=== PATIENT | female | born 1995 | race Caucasian/White ===

== ENCOUNTER 2018-12-10 23:05 | Emergency (ER) | payer SELFPAY ==
[~2018-12-10] VITALS: Ht 172.7 cm; Wt 104.5 kg
[~2018-12-10 23:05] MED LIST: BIRTH CONTROL; CLARINEX 5MG5 MG PO; CLARITIN 1010 MG/TAB PO; FLONASE NASAL S16 GM NS; LAMICTAL 100MG100 MG PO; MULTIPLE VITAMI1 CAP PO; TENEX PO; TRILEPTAL 150M150 MG PO; VYVANSE60 MG PO; VYVANSE70 MG PO; ZOFRAN 4MG T4 MG/TAB PO
[2018-12-10 23:28] VITALS: BP 130/75; TEMP 99.1
[2018-12-11 03:55] VITALS: PULSE 95
== END 2018-12-11 03:55 | disposition home or self-care (01) ==
LOC: COL.ER 23:05
DX: S93.401A Sprain of unspecified ligament of right ankle, initial encounter (principal); X50.0XXA Overexertion from strenuous movement or load, initial encounter; F32.9 Major depressive disorder, single episode, unspecified; F41.9 Anxiety disorder, unspecified; F17.210 Nicotine dependence, cigarettes, uncomplicated; F12.90 Cannabis use, unspecified, uncomplicated
CPT/HCPCS: Q4045; Q9967

== ENCOUNTER 2019-02-06 10:45 | Emergency (ER) | payer SELFPAY ==
[~2019-02-06] VITALS: Ht 172.7 cm; Wt 121.2 kg
[2019-02-06 10:53] VITALS: TEMP 99.7
[2019-02-06 11:49] LABS: BASO # 0.1 (0.0-0.2); BASO % 0.8 % (0.0-2.0); EOS # 0.1 (0.0-0.7); GRAN # 4.3 (1.4-6.5); GRAN % 55.7 % (42.2-75.2); HEMATOCRIT 44.9 % (37.0-47.0); HEMOGLOBIN 14.6 g/dl (12.5-16.0); LYMPH # 2.7 (1.2-3.4); LYMPH % 34.6 % (20.0-51.0); MEAN CELL VOLUME 90 fl (80.0-100.0); MEAN CORPUSCULAR HEMOGLOBIN 29 pg (27.0-31.0); MEAN CORPUSCULAR HGB CONC 33 g/dl (33.0-37.0); MEAN PLATELET VOLUME 10.1 fl (7.4-10.4); MONO # 0.6 (0.1-0.6); MONO % 7.6 % (1.7-9.3); PLATELET COUNT 264 K/mm3 (130-400); RED BLOOD COUNT 4.97 M/mm3 (4.10-5.30); REDCELL DISTRIBUTION WIDTH-CV 14.4 % (11.5-14.5)
[2019-02-06 11:58] LABS: ALANINE AMINOTRANSFERASE 30 U/L (9-52); ALBUMIN 4.5 gm/dL (3.5-5.0); ALKALINE PHOSPHATASE 138 U/L (50-136); ANION GAP 11 mmol/L (7-16); AST,SGOT 38 U/L (15-37); BILIRUBIN,TOTAL 0.6 mg/dL (0.0-1.0); BLOOD UREA NITROGEN 16 mg/dL (7-17); CALCIUM 10.1 mg/dL (8.4-10.2); CARBON DIOXIDE 25 mmol/L (22-30); CHLORIDE 106 mmol/L (98-107); GLUCOSE 77 mg/dL (74-106); POTASSIUM 4.1 mmol/L (3.4-5.0); SODIUM 142 mmol/L (137-145); TOTAL PROTEIN 8.9 gm/dL (6.4-8.2)
[2019-02-06 12:04] LABS: ACETAMINOPHEN < 10 ug/mL (10-30)
[2019-02-06 12:05] LABS: ALCOHOL(ethanol),MEDICAL < 10 mg/dL; SALICYLATE < 1.0 mg/dL
[2019-02-06 12:07] LABS: COLLECTION METHOD CLEAN CATCH
[2019-02-06 12:18] LABS: MUCOUS Present /lpf; PH 7 (5-8); SQUAMOUS EPITHELIAL 0-2 /hpf; URINE APPEARANCE Clear; URINE BACTERIA None Seen /hpf; URINE BILIRUBIN Negative (NEGATIVE); URINE BLOOD Negative (NEGATIVE); URINE COLOR Yellow; URINE GLUCOSE Negative (NEGATIVE); URINE KETONE Negative (NEGATIVE); URINE LEUKOCYTE ESTERASE Negative (NEGATIVE); URINE NITRATE Negative (NEGATIVE); URINE PROTEIN(semi-quant) Negative (NEGATIVE); URINE UROBILINOGEN Negative (NEGATIVE)
[2019-02-06 12:25] LABS: TRICYCLIC ANTIDEPRESS URINE NEGATIVE
[2019-02-06 15:45] VITALS: BP 133/83; PULSE 80
== END 2019-02-06 15:00 | disposition home or self-care (01) ==
LOC: COL.ER 10:45
PROVIDERS: Nurse Practitioner
DX: R45.851 Suicidal ideations (principal); F32.9 Major depressive disorder, single episode, unspecified; F20.9 Schizophrenia, unspecified; F90.9 Attention-deficit hyperactivity disorder, unspecified type; F41.9 Anxiety disorder, unspecified; F17.210 Nicotine dependence, cigarettes, uncomplicated

== ENCOUNTER 2019-07-03 06:57 | Emergency (ER) | payer MEDICAID ==
[~2019-07-03] VITALS: Ht 172.7 cm; Wt 109.1 kg
[2019-07-03 07:01] VITALS: BP 126/79; TEMP 97.1
[2019-07-03 07:54] LABS: BASO % 0.3 % (0.0-2.0); EOS # 0.1 (0.0-0.7); EOS % 0.6 % (0-4.0); GRAN # 9.7 (1.4-6.5); GRAN % 76.4 % (42.2-75.2); LYMPH # 2.1 (1.2-3.4); LYMPH % 16.4 % (20.0-51.0); MEAN CELL VOLUME 89 fl (80.0-100.0); MEAN CORPUSCULAR HEMOGLOBIN 29 pg (27.0-31.0); MEAN CORPUSCULAR HGB CONC 33 g/dl (33.0-37.0); MEAN PLATELET VOLUME 9.8 fl (7.4-10.4); MONO # 0.8 (0.1-0.6); PLATELET COUNT 288 K/mm3 (130-400); RED BLOOD COUNT 4.84 M/mm3 (4.10-5.30); REDCELL DISTRIBUTION WIDTH-CV 14.6 % (11.5-14.5)
[2019-07-03 08:04] LABS: ALANINE AMINOTRANSFERASE 27 U/L (9-52); ALBUMIN 4.4 gm/dL (3.5-5.0); ALKALINE PHOSPHATASE 137 U/L (50-136); ANION GAP 9 mmol/L (7-16); AST,SGOT 32 U/L (15-37); BILIRUBIN,TOTAL 0.6 mg/dL (0.0-1.0); BLOOD UREA NITROGEN 15 mg/dL (7-17); CALCIUM 9.5 mg/dL (8.4-10.2); CARBON DIOXIDE 24 mmol/L (22-30); CHLORIDE 106 mmol/L (98-107); CREATININE, serum 0.66 (0.52-1.25); GLUCOSE 97 mg/dL (74-106); POTASSIUM 4.2 mmol/L (3.4-5.0); SODIUM 138 mmol/L (137-145); TOTAL PROTEIN 8.2 gm/dL (6.4-8.2)
[2019-07-03 08:09] LABS: ACETAMINOPHEN < 10 ug/mL (10-30); ALCOHOL(ethanol),MEDICAL < 10 mg/dL
[2019-07-03] MEDS ORDERED: ZOFRAN ODT8 MG PO (08:57)
[2019-07-03 09:00] LABS: COLLECTION METHOD CLEAN CATCH
[2019-07-03 09:10] LABS: MUCOUS Present /lpf; PH 6 (5-8); URINE APPEARANCE Hazy; URINE BACTERIA Rare /hpf; URINE BILIRUBIN Negative (NEGATIVE); URINE BLOOD Negative (NEGATIVE); URINE COLOR Yellow; URINE GLUCOSE Negative (NEGATIVE); URINE KETONE Negative (NEGATIVE); URINE LEUKOCYTE ESTERASE Trace (NEGATIVE); URINE NITRATE Negative (NEGATIVE); URINE PROTEIN(semi-quant) Negative (NEGATIVE); URINE RBC 0-2 /hpf; URINE UROBILINOGEN Negative (NEGATIVE)
[2019-07-03] MEDS ORDERED: CEPHALEXIN500 M1 PO (09:19)
[2019-07-03 09:22] LABS: TRICYCLIC ANTIDEPRESS URINE NEGATIVE
[2019-07-03 09:33] VITALS: PULSE 96
== END 2019-07-03 09:33 | disposition home or self-care (01) ==
LOC: COL.ER 06:57
PROVIDERS: Emergency Medicine
DX: S06.0X0A Concussion without loss of consciousness, initial encounter (principal); N39.0 Urinary tract infection, site not specified; F20.9 Schizophrenia, unspecified; F90.9 Attention-deficit hyperactivity disorder, unspecified type; R40.2412 Glasgow coma scale score 13-15, at arrival to emergency department; W22.8XXA Striking against or struck by other objects, initial encounter; Y92.009 Unspecified place in unspecified non-institutional (private) residence as the place of occurrence of the external cause

== ENCOUNTER 2019-08-03 18:40 | Emergency (ER) | payer MEDICAID ==
[~2019-08-03] VITALS: Ht 172.7 cm; Wt 118.2 kg
[~2019-08-03 18:40] MED LIST changes: +CEPHALEXIN500 M1 PO; +ZOFRAN ODT8 MG PO
[2019-08-03 20:49] VITALS: BP 118/68; PULSE 72; TEMP 98.9
== END 2019-08-03 20:52 | disposition home or self-care (01) ==
LOC: COL.ER 18:40
DX: S09.90XA Unspecified injury of head, initial encounter (principal); S39.012A Strain of muscle, fascia and tendon of lower back, initial encounter; R40.2412 Glasgow coma scale score 13-15, at arrival to emergency department; F20.9 Schizophrenia, unspecified; F32.9 Major depressive disorder, single episode, unspecified; F41.9 Anxiety disorder, unspecified; F17.210 Nicotine dependence, cigarettes, uncomplicated; W19.XXXA Unspecified fall, initial encounter; Y92.59 Other trade areas as the place of occurrence of the external cause
CPT/HCPCS: J1885

== ENCOUNTER 2019-08-18 13:50 | Emergency (ER) | payer MEDICAID ==
[~2019-08-18] VITALS: Ht 172.7 cm; Wt 100.0 kg
[2019-08-18 14:11] VITALS: BP 126/71; TEMP 99.1
[2019-08-18] MEDS ORDERED: LAMICTAL 100MG100 MG PO (14:24)
[2019-08-18] MEDS ORDERED: VYVANSE40 MG PO (14:24)
[2019-08-18] MEDS ORDERED: ABILIFY5 MG PO (14:25)
[2019-08-18 15:16] VITALS: PULSE 92
== END 2019-08-18 15:25 | disposition home or self-care (01) ==
LOC: COL.ER 13:50
DX: S80.01XA Contusion of right knee, initial encounter (principal); F17.210 Nicotine dependence, cigarettes, uncomplicated; F31.9 Bipolar disorder, unspecified; F20.9 Schizophrenia, unspecified; W00.0XXA Fall on same level due to ice and snow, initial encounter; Y92.009 Unspecified place in unspecified non-institutional (private) residence as the place of occurrence of the external cause

== ENCOUNTER 2021-12-10 17:39 | Emergency (ER) | payer MEDICAID ==
[~2021-12-10] VITALS: Ht 172.7 cm; Wt 127.3 kg
[~2021-12-10 17:39] MED LIST changes: +ABILIFY5 MG PO; +VYVANSE40 MG PO
[2021-12-10 17:52] VITALS: TEMP 98.2
[2021-12-10 19:09] VITALS: BP 110/81; PULSE 90
== END 2021-12-10 19:09 | disposition home or self-care (01) ==
LOC: COL.ER 17:39
DX: M21.611 Bunion of right foot (principal); Z28.310 Unvaccinated for COVID-19

== ENCOUNTER 2022-03-15 04:48 | Emergency (ER) | payer MEDICAID ==
[~2022-03-15] VITALS: Ht 170.2 cm; Wt 136.4 kg
[2022-03-15 04:52] VITALS: BP 137/89; TEMP 97.4
[2022-03-15] MEDS ORDERED: AMOXICILLIN875 MG PO (05:02)
[2022-03-15 05:08] VITALS: PULSE 86
== END 2022-03-15 05:16 | disposition home or self-care (01) ==
LOC: COL.ER 04:48
DX: H66.91 Otitis media, unspecified, right ear (principal); Z28.310 Unvaccinated for COVID-19